=== PATIENT | female | born 1940 | race Asian ===

== ENCOUNTER 2019-07-05 17:00 | Emergency (ER) | payer SELFPAY ==
[~2019-07-05] VITALS: Ht 152.4 cm; Wt 45.4 kg
[2019-07-05 17:04] VITALS: BP 172/70
--- NOTE | 2019-07-05 17:04 | NUR ---
ED Nurse Note: Pt brought in by EMS from a bus stop due to laceration about 2 inches on her lower forehead S/P fall on a cement. Noted wide opened laceraton with active bleeding. RN continued to put pressure dressing. AAO x4 follows commands with no respiratory distress. Pt is agitated and Dr Kelly was notified.
--- NOTE | 2019-07-05 17:15 | NUR ---
ED Nurse Note: Dr Kelly at the bed side for wound suturing.
[2019-07-05] MEDS ORDERED: Lidocaine 1% 10mg/ml/Epi 0.005mg/ml 10ml vial INJ ONE ×2 (17:16→18:30)
--- NOTE | 2019-07-05 18:28 | Emergency Room Report ---
History of Present Illness General Chief Complaint: Multiple Trauma/Fall Source: Patient, EMS Present Illness HPI Patient had a non-syncopal fall according to EMS and family. She was observed to fall by family. She hit her forehead. Bleeding was controlled at the scene with a pressure dressing. Patient rates the pain 3/10 aching and sharp. She denies neck pain. She denies other trauma to her body. No fevers, chills, sore throat, chest pain, palpitations, nausea, vomiting, diarrhea, dysuria, abdominal pain, shortness of breath, joint pain, rashes, depression, anxiety, visual changes. Allergies: Coded Allergies: No Known Allergies (Unverified , 07/05/19) Patient History Past Medical History: see triage record Social History: Denies: smoking, alcohol use Social History Narrative From home Now: No Reviewed Nursing Documentation: PMH: Agreed; PSxH: Agreed Review of Systems All Other Systems: negative except mentioned in HPI Physical Exam Vital Signs Date Time Temp Pulse Resp B/P (MAP) Pulse Ox O2 Delivery O2 Flow Rate FiO2 07/05/19 16:54 97.5 70 18 169/79 (109) 98 Sp02 EP Interpretation: reviewed, normal General Appearance: no apparent distress, alert, GCS 15, non-toxic, other - Possible alcohol smell versus ketones Head: normocephalic, other - Forehead laceration Eyes: bilateral eye normal inspection, bilateral eye PERRL, bilateral eye EOMI ENT: normal pharynx, moist mucus membranes, other - Swelling forehead and bridge of nose Neck: full range of motion, supple, no bony tend Respiratory: chest non-tender, lungs clear, normal breath sounds Cardiovascular #1: regular rate, rhythm, no edema Cardiovascular #2: 2+ radial (L) Gastrointestinal: normal bowel sounds, non tender, soft Genitourinary: no CVA tenderness Musculoskeletal: back normal, digits/nails normal, gait/station normal, normal range of motion Neurologic: alert, target man III-XII nml as tested, motor strength/tone normal, DTRs symmetric, sensory intact, cerebellar normal, normal gait, speech normal, oriented - X2 Psychiatric: other - Angry at staff are applying pressure Skin: Ecchymosis/Bruising - Bridge of nose, laceration - 5 cm linear lower forehead Procedures Laceration/Wound Repair Laceration/Wound Repair : Wound Location: face Wound's Depth, Shape: into muscle, linear Wound Length (cm): 5 Wound Explored: clean Betadine Prep?: Yes Volume Anesthetic (ccs): 3 Wound Debrided: None Wound Repaired With: sutures Suture Size/Type: 6:0, proline Layer Closure?: Yes - Muscle and subcuticular Deep Layer Suture Size/Type: 6:0, 5:0, other - Vicryl Sterile Dressing Applied?: Yes Splint Applied?: No Patient Tolerated: Well Complications: None Medical Decision Making Diagnostic Impression: Primary Impression: Forehead laceration Qualified Codes: S01.81XA - Laceration without foreign body of other part of head, initial encounter Additional Impressions: Head injury Qualified Codes: S09.90XA - Unspecified injury of head, initial encounter Facial trauma Qualified Codes: S09.93XA - Unspecified injury of face, initial encounter ER Course Patient presents after non-syncopal fall with forehead laceration. Differential includes forehead laceration, brain bleed, significant blood loss, arrhythmia amongst others. Immediate hemostasis required. See procedure note. Evaluation with EKG, CT of the head and labs indicated. 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 EKG no injury. CT the head and maxillofacial without fracture or bleed. Soft tissue swelling. Complex laceration repair performed. Prior to suturing hemostasis obtained. Labs unremarkable for emergent condition. Repeat neurologic exam normal. Pain is denied. Discussed treatment plan with patient. Patient stable for outpatient observation and treatment. Laboratory Tests Test 07/05/19 19:00 White Blood Count 6.5 K/UL (4.8-10.8) Red Blood Count 3.73 M/UL (4.20-5.40) L Hemoglobin 12.0 G/DL (12.0-16.0) Hematocrit 33.1 % (37.0-47.0) L Mean Corpuscular Volume 89 FL (80-99) Mean Corpuscular Hemoglobin 32.3 PG (27.0-31.0) H Mean Corpuscular Hemoglobin Concent 36.4 G/DL (32.0-36.0) H Red Cell Distribution Width 10.8 % (11.6-14.8) L Platelet Count 116 K/UL (150-450) L Mean Platelet Volume 9.7 FL (6.5-10.1) Neutrophils (%) (Auto) 71.7 % (45.0-75.0) Lymphocytes (%) (Auto) 16.4 % (20.0-45.0) L Monocytes (%) (Auto) 8.2 % (1.0-10.0) Eosinophils (%) (Auto) 3.1 % (0.0-3.0) H Basophils (%) (Auto) 0.7 % (0.0-2.0) Prothrombin Time 10.6 SEC (9.30-11.50) Prothrombin Time INR 1.0 (0.9-1.1) PTT 28 SEC (23-33) Sodium Level 142 MMOL/L (136-145) Potassium Level 5.0 MMOL/L (3.5-5.1) Chloride Level 108 MMOL/L (98-107) H Carbon Dioxide Level 23 MMOL/L (21-32) Anion Gap 11 mmol/L (5-15) Blood Urea Nitrogen 23 mg/dL (7-18) H Creatinine 1.1 MG/DL (0.55-1.30) Estimate Glomerular Filtration Rate mL/min (>60) Glucose Level 178 MG/DL (74-106) H Calcium Level 8.4 MG/DL (8.5-10.1) L Total Bilirubin 0.5 MG/DL (0.2-1.0) Aspartate Amino Transferase (AST) 52 U/L (15-37) H Alanine Aminotransferase (ALT) 33 U/L (12-78) Alkaline Phosphatase 76 U/L (46-116) Total Protein 6.9 G/DL (6.4-8.2) Albumin 3.1 G/DL (3.4-5.0) L Globulin 3.8 g/dL Albumin/Globulin Ratio 0.8 (1.0-2.7) L Serum Alcohol < 3 mg/dL EKG Diagnostic Results Rate: normal Rhythm: NSR ST Segments: no acute changes Rhythm Strip Diag. Results EP Interpretation: yes Rhythm: NSR, no PVC's, no ectopy CT/MRI/US Diagnostic Results CT/MRI/US Diagnostic Results #1: Imaging Test Ordered: Head Impression No fracture or bleed CT/MRI/US Diagnostic Results #2: Imaging Test Ordered: Maxillofacial Impression no fracture but soft tissue swelling swelling.And some mucosal Last Vital Signs Date Time Temp Pulse Resp B/P (MAP) Pulse Ox O2 Delivery O2 Flow Rate FiO2 07/05/19 20:40 97.6 89 20 172/70 100 Status: improved Disposition: HOME, SELF-CARE Condition: Improved Scripts Acetaminophen (Tylenol) 325 Mg Tablet 650 MG ORAL Q6H PRN for Prn Pain/Headache/Temp > 101, #20 TAB 0 Refills Prov: Percy Kelly MD 07/05/19 Bacitracin (Bacitracin) 28.4 Gm Oint...g. 1 APPLIC TOPIC BID, #14 GM Prov: Percy Kelly MD 07/05/19 Percy Kelly MD Jul 05, 2019 18:28
[2019-07-05] MEDS ORDERED: Tetanus/Diptheria/Pertussis IM ONE (18:30)
[2019-07-05] MEDS ORDERED: Acetaminophen 500mg (ES) tab PO ONE (18:30)
[2019-07-05] MEDS ORDERED: Neosporin Oint Ud Pkt TOP ONE (18:30)
--- NOTE | 2019-07-05 18:42 | NUR ---
ED Nurse Note: Luther BERRY tech cleaning pt's dried blood wt NS. Suturing done by Dr Kelly.
--- NOTE | 2019-07-05 19:09 | Diagnostic Imaging Report ---
Indication: Orbital and maxillofacial trauma and pain Technique: Continuous helical transaxial imaging of the orbits/maxillofacial structures obtained without intravenous contrast administration. Coronal 2-D reformats were also obtained. Study obtained in a Siemens sensation [address] Automatic Exposure Control was utilized. Total Dose length Product (DLP): Refer to CT head mGycm CT Dose Index Volume (CTDIvol): Refer to CT head mGy Comparison: None Findings: There is no evidence of an acute fracture. Paranasal sinuses and mastoids are clear. Soft tissues are unremarkable. Minimal mucosal thickening noted within some of the paranasal sinuses. Impression: No acute injury identified. [facility] has communicated the preliminary results to the Emergency Department. Their findings are largely concordant with this report. The CT scanner at [facility] is accredited by the [employer] and the scans are performed using dose optimization techniques as appropriate to a performed exam including Automatic Exposure control.
--- NOTE | 2019-07-05 19:09 | Diagnostic Imaging Report ---
Indication: Headache Technique: Contiguous 5 mm thick transaxial imaging of the head obtained in a Siemens Sensation [address] scanner. Soft tissue and bone windows generated. Automatic Exposure Control was utilized. Total Dose length Product (DLP): 1810.[address] Dose Index Volume (CTDIvol): 70.38,28.19 mGy Comparison: none Findings: There is mild prominence of the ventricles, basal cisterns, and cerebral sulci consistent with atrophy. Mild, nonspecific, white matter hypoattenuation is noted throughout the brain consistent with chronic small vessel disease. 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 There is no midline shift, edema, acute hemorrhage, mass effect, or abnormal extra-axial fluid collections. Bones are unremarkable. Impression: No acute intracranial bleed, mass effect or edema. Mild atrophy of the brain. Nonspecific white matter hypoattenuation probably due to chronic small vessel disease. [facility] has communicated the preliminary results to the Emergency Department. Their findings are largely concordant with this report. The CT scanner at [facility] is accredited by the [employer] and the scans are performed using dose optimization techniques as appropriate to a performed exam including Automatic Exposure control.
--- NOTE | 2019-07-05 19:14 | NUR ---
HAND-OFF: Report given to Hermelinda RUIZ.
[2019-07-05 19:26] LABS: BASOPHILS % (AUTO) 0.7 % (0.0-2.0); EOSINOPHILS % (AUTO) 3.1 % (0.0-3.0); HEMATOCRIT 33.1 % (37.0-47.0); LYMPHOCYTES % (AUTO) 16.4 % (20.0-45.0); MEAN CORPUSCULAR VOLUME 89 FL (80-99); MONOCYTES % (AUTO) 8.2 % (1.0-10.0); NEUTROPHILS % (AUTO) 71.7 % (45.0-75.0); PLATELET COUNT 116 K/UL (150-450); RED BLOOD COUNT 3.73 M/UL (4.20-5.40); RED CELL DISTRIBUTION WIDTH 10.8 % (11.6-14.8); WHITE BLOOD COUNT 6.5 K/UL (4.8-10.8)
[2019-07-05 19:47] LABS: ANION GAP 11 mmol/L (5-15); BLOOD UREA NITROGEN 23 mg/dL (7-18); CALCIUM 8.4 MG/DL (8.5-10.1); CARBON DIOXIDE 23 MMOL/L (21-32); CHLORIDE 108 MMOL/L (98-107); CREATININE 1.1 MG/DL (0.55-1.30); SODIUM 142 MMOL/L (136-145)
[2019-07-05 19:53] LABS: ALANINE AMINOTRANSFERASE 33 U/L (12-78); ALBUMIN 3.1 G/DL (3.4-5.0); ALBUMIN/GLOBULIN RATIO 0.8 (1.0-2.7); ALKALINE PHOSPHATASE 76 U/L (46-116); ASPARTATE AMINO TRANSFERASE 52 U/L (15-37); BILIRUBIN,TOTAL 0.5 MG/DL (0.2-1.0)
[2019-07-05] MEDS ORDERED: TYLENOL325 MG ORAL (20:27)
[2019-07-05] MEDS ORDERED: BACITRACIN15 GM TOPIC (20:27)
[2019-07-05 20:40] VITALS: BP 172/70
--- NOTE | 2019-07-05 20:40 | NUR ---
ED Nurse Note: Patient cleared for discharge, no s.s of actue distress. Patient verbalized understanding of discharge instructions post discharge in Polish with language assistance from Luther PARADA. Patient ID band removed. Patient departed with all belongings, to wait for a ride in the waiting room.
== END 2019-07-05 20:45 | disposition home or self-care (01) ==
LOC: EDSEX 17:00 → EDBD 17:00 → EMR 19:13
DX: S01.81XA Laceration without foreign body of other part of head, initial encounter (principal); Z23 Encounter for immunization; W18.39XA Other fall on same level, initial encounter; Y92.9 Unspecified place or not applicable
CPT/HCPCS: 12013; 36415; 70450; 70486; 80053; 85025; 85610; 85730; 90471; 90715; 99284; G0480; 80329

== ENCOUNTER 2019-07-18 16:39 | Emergency (ER) | payer MEDICARE, OTHER ==
[~2019-07-18] VITALS: Ht 149.9 cm; Wt 40.8 kg
[~2019-07-18 16:39] MED LIST: BACITRACIN15 GM TOPIC; TYLENOL325 MG ORAL
[2019-07-18 16:43] VITALS: BP 156/71
--- NOTE | 2019-07-18 16:53 | NUR ---
ED Nurse Note: Pt came in due to suture removal on her forehead. Suture done here at [facility] but pt unable to remember the date it was done. Suture site is dry with no signs of infection. AAO x4 and ambulatory.
[2019-07-18] MEDS ORDERED: BACITRACIN-P28.35 GM TP (17:17)
--- NOTE | 2019-07-18 17:17 | Emergency Room Report ---
History of Present Illness General Chief Complaint: Wound Recheck/Suture Removal Source: Patient Present Illness HPI 78-year-old female presents to the emergency department for suture removal of sutures that were placed here in the emergency department 13 days ago. Patient denies pain, erythema, discharge or bleeding. Patient denies additional trauma. Patient has no other complaints at this time. Allergies: Coded Allergies: No Known Allergies (Unverified , 07/05/19) Patient History Past Medical History: see triage record Past Surgical History: none Pertinent Family History: none Last Menstrual Period: na Immunizations: UTD Reviewed Nursing Documentation: PMH: Agreed; PSxH: Agreed Nursing Documentation-PMH Past Medical History Deferred: No Family Available Past Medical History: No History, Except For Hx Hypertension: Yes Review of Systems All Other Systems: negative except mentioned in HPI Physical Exam Vital Signs Date Time Temp Pulse Resp B/P (MAP) Pulse Ox O2 Delivery O2 Flow Rate FiO2 07/18/19 16:43 97.3 67 18 156/71 98 Room Air Sp02 EP Interpretation: reviewed, normal General Appearance: no apparent distress, alert, GCS 15, non-toxic Head: normocephalic, other - bilateral zygomatic contusions- old/ healing. - previously sutured forehead laceration Eyes: bilateral eye normal inspection, bilateral eye PERRL ENT: hearing grossly normal, normal voice Neck: full range of motion Respiratory: lungs clear, normal breath sounds, speaking full sentences Cardiovascular #1: regular rate, rhythm Musculoskeletal: back normal, gait/station normal, normal range of motion, non- tender Neurologic: alert, oriented x3, responsive, motor strength/tone normal, sensory intact, normal gait, speech normal, grossly normal Psychiatric: judgement/insight normal Skin: wd healing/no infection noted - previously sutured forehead laceration Medical Decision Making PA Attestation Dr. Rojas is my supervising Physician whom patient management has been discussed with. Diagnostic Impression: Primary Impression: Encounter for removal of sutures ER Course 78-year-old female presents to the emergency department for suture removal of sutures that were placed here in the emergency department 13 days ago. Patient denies pain, erythema, discharge or bleeding. Patient denies additional trauma. Patient has no other complaints at this time. Ddx considered but are not limited to laceration, tendon injury, cellulitis, dehiscence. Vital signs: are WNL, pt. is afebrile H&PE are most consistent with: healed laceration of the forehead ORDERS: none required at this time, the diagnosis is clinical ED INTERVENTIONS: - approx. 11 Sutures removed. DISCHARGE: At this time pt. is stable for d/c to home. Will provide printed patient care instructions, and any necessary prescriptions. Care plan and follow up instructions have been discussed with the patient prior to discharge. Last Vital Signs Date Time Temp Pulse Resp B/P (MAP) Pulse Ox O2 Delivery O2 Flow Rate FiO2 07/18/19 16:43 97.3 67 18 156/71 (99) 98 Room Air Disposition: HOME, SELF-CARE Condition: Stable Scripts Bacitracin/Polymyxin B Sulfate (BACITRACIN-POLYMYXIN OINTMENT) 28.35 Gm Oint...g. 1 APPLIC TP BID, #28.3 GM Prov: Tiki Singh 07/18/19 Patient Instructions: Suture Removal, Care After Additional Instructions: Take medications as directed. Follow up with a Primary Care Provider in 3-5 days, even if your symptoms have resolved. --Please review list of primary care clinics, if you do not already have a primary care provider Return sooner to ED if new symptoms occur, or current symptoms become worse. - Please note that this Emergency Department Report was dictated using [employer] plant agent technology software, occasionally this can lead to erroneous entry secondary to interpretation by the dictation equipment. Tiki Singh Jul 18, 2019 17:17
[2019-07-18 17:25] VITALS: BP 145/76
--- NOTE | 2019-07-18 17:25 | NUR ---
ER DISCHARGE NOTE: Patient is cleared to be discharged per PA, pt is aox4, on room air, with stable vital signs. pt was given dc and prescription instructions, pt was able to verbalize understanding, pt id band removed. pt is able to ambulate with steady gait. pt took all belongings.
== END 2019-07-18 17:25 | disposition home or self-care (01) ==
LOC: EMR 17:16
DX: S01.81XD Laceration without foreign body of other part of head, subsequent encounter (principal); I10 Essential (primary) hypertension; Z48.02 Encounter for removal of sutures
CPT/HCPCS: 99281